=== PATIENT | male | born 1950 | race Caucasian/White ===

== ENCOUNTER 2020-04-11 04:30 | Emergency (ER) | payer MEDICARE, MEDICAID ==
[~2020-04-11] VITALS: Ht 165.1 cm; Wt 104.5 kg
[2020-04-11] MEDS ORDERED: ONDANSETRON HCL 4MG/2ML INJ IV SCH (07:20)
[2020-04-11] MEDS ORDERED: SODIUM CHLORIDE 0.9% 1,000 ML IV SCH (07:30)
[2020-04-11] MEDS ORDERED: KETOROLAC 15MG/ML VIAL IV SCH (07:30)
[2020-04-11 08:26] LABS: BASOPHILS % 0.6 % (0.0-2.0); HEMATOCRIT. 30.9 % (42.0-52.0); HEMOGLOBIN. 10.5 g/dL (14.0-18.0); LYMPHOCYTES % 10.8 % (20.0-50.0); MEAN CORPUSCULAR HEMOGLOBIN 38.4 pg (28.0-32.0); MEAN CORPUSCULAR VOLUME 112.4 fL (80.0-94.0); MONOCYTES % 3.4 % (2.0-8.0); NEUTROPHILS % 83.2 % (40.0-76.0); RED BLOOD CELL COUNT 2.74 mill/uL (4.7-6.1); RED CELL DISTRIBUTION WIDTH 18.9 % (11.6-14.6)
[2020-04-11 09:22] LABS: INR 2.2; PROTHROMBIN TIME 22.1 sec (9.6-11.0)
[2020-04-11 10:00] LABS: CHLORIDE 104 mEq/L (98-107)
[2020-04-11 11:51] LABS: PLATELET ESTIMATE DECREASED
[2020-04-11 11:53] LABS: PLATELET 78 x1000/uL (130-400)
[2020-04-11 16:58] VITALS: BP 112/68
== END 2020-04-11 17:14 | disposition short-term general hospital (02) ==
LOC: ER 04:30 → CANBEDREQ 07:40 → ER 17:14
DX: R10.33 Periumbilical pain (principal); K76.89 Other specified diseases of liver; F41.9 Anxiety disorder, unspecified; I11.9 Hypertensive heart disease without heart failure; F32.9 Major depressive disorder, single episode, unspecified; E78.00 Pure hypercholesterolemia, unspecified; E11.9 Type 2 diabetes mellitus without complications
CPT/HCPCS: 36415; 71045; 74176; 80053; 82140; 83690; 85025; 85610; 93005; 96374; 96375; 99285; J1885; J2405